=== PATIENT | male | born 1995 | race Caucasian/White ===

== ENCOUNTER 2020-01-19 11:19 | Emergency (ER) | payer OTHER, SELFPAY ==
--- NOTE | 2020-01-19 11:34 | ED.GENADULT ---
HPI - General Adult General Chief complaint: Upper Respiratory Infection Stated complaint: sore throat fever Time Seen by Provider: 01/19/20 11:56 Source: patient Mode of arrival: ambulatory Limitations: no limitations History of Present Illness HPI narrative: 24-year-old male patient presents to the [facility] with complaints of cold symptoms that started yesterday. Patient states he has had severe body aches and chills as well as fevers. Patient states a little bit of a cough and a runny nose. Denies any sore throat, ear pain. Denies any nausea vomiting or diarrhea. Patient denies being a smoker. Patient denies getting a flu shot this year. Patient states he has taken Tylenol for symptoms so far. Related Data Allergies Allergy/AdvReac Type Severity Reaction Status Date / Time sulfamethoxazole Allergy Swelling Verified 01/19/20 11:50 [From Bactrim] trimethoprim [From Bactrim] Allergy Swelling Verified 01/19/20 11:50 Review of Systems Review of Systems: Narrative: CONSTITUTIONAL: Positive fever, chills, body exam sweats. EYES: Denies visual changes, redness, or discharge. ENT: Positive rhinorrhea, congestion, denies sore throat, or otalgia. CARDIOVASCULAR: Denies chest pain, palpitations, or edema. RESPIRATORY: Positive cough denies dyspnea. GASTROINTESTINAL: Denies abdominal pain, nausea, vomiting, or diarrhea. GENITOURINARY: Denies dysuria or hematuria. SKIN: Denies rash or itching. MUSCULOSKELETAL: Denies back pain, joint pain, or myalgia. NEUROLOGIC: Denies headache, numbness, or weakness. PSYCHIATRIC: Denies anxiety or depression. PMFSH Comments At the time of my signature I agree with nursing past medical history, surgical, social, and family history. There is no relevant family history pertinent to the presenting complaint. Exam Narrative: Exam Narrative: GENERAL: ill-appearing, well-nourished, and in no acute distress. HEAD: Normocephalic, atraumatic. EYES: PERRLA and EOMI. ENT: Nares with erythema and edema noted bilaterally, no rhinorrhea or epistaxis. Mucous membranes moist. Posterior pharynx with no erythema, tonsillar margin, exudates or lesions present. Bilateral TMs are clear with no erythema or foreign bodies in the canal. NECK: Supple. No lymphadenopathy CHEST: Clear to auscultation. No respiratory distress. HEART: Regular rate and rhythm. No murmur heard. Normal peripheral pulses. ABDOMEN: Soft, nontender, nondistended, normal active bowel sounds. EXTREMITIES: Normal range of motion. No edema. SKIN: Warm, dry, no rash. NEURO: No focal deficits. Alert and oriented x3. Course Reevaluation(s) Reevaluation #1: Notify patient he is positive today for influenza A. Discussed with him that he is within the timeframe to receive antivirals and discussed with him the pros and cons of taking antivirals as well as the side effects. Patient states he would like to go ahead and start antivirals today. Discussed with patient we will write him off of work for the rest of the week and he can go back on Friday as long as he has been fever free for 24 hours on Friday. Patient verbalized understanding denies any other questions or concerns at this time. Date: 01/19/20 Time: 12:11 Vital Signs Vital signs: Vital Signs Temperature 38.1 C H 01/19/20 11:39 Pulse Rate 91 01/19/20 11:39 Respiratory Rate 16 01/19/20 11:39 Blood Pressure 123/73 01/19/20 11:39 Pulse Oximetry 100 01/19/20 11:39 Temperature 38.1 C H 01/19/20 11:39 Pulse Rate 91 01/19/20 11:39 Respiratory Rate 16 01/19/20 11:39 Blood Pressure 123/73 01/19/20 11:39 Pulse Oximetry 100 01/19/20 11:39 Vital signs reviewed. Medical Decision Making Differential Diagnosis Differential Diagnosis: Differential diagnosis: Allergic rhinitis, chronic sinusitis, tonsillitis, acute sinusitis, infectious mononucleosis, seasonal influenza, pertussis, diphtheria, meningococcal disease, viral syndrome, viral bronchitis, RSV. Any car
[2020-01-19 11:39] VITALS: BP 123/73; PULSE 91; RESP 16; TEMP 38.1; O2SAT 100
== END 2020-01-19 12:18 | disposition home or self-care (01) ==
PROVIDERS: Emergency Provider Nurse Practitioner Family; PCP Internal Medicine Infectious Disease
DX: J10.1 Influenza due to other identified influenza virus with other respiratory manifestations (principal)
CPT/HCPCS: 87804; 99213; G0463

== ENCOUNTER 2020-04-15 20:34 | Emergency (ER) | payer OTHER, SELFPAY ==
--- NOTE | ~2020-04-15 | CT_ITS ---
EXAMINATION: CT chest w con DATE: 04/15/2020 21:56 INDICATION: Back and right neck pain post fall from roof landing on the back. TECHNIQUE: Computed tomography (CT) of the chest was performed without intravenous contrast. Addition al 3D reconstructions utilizing coronal maximum intensity projection (MIP) were performed. Automated exposure control and iterative reconstruction technique were employed. The dose-length product was 14 6.68 mGy-cm. COMPARISON: None FINDINGS: Mild dependent atelectasis in the bilateral lower lobes. No pneumonia or other pulmonary infiltrates, pulmonary edema, pleural effusion or pneumothorax. Heart size is normal. No pericardial effusion. Th oracic aorta is normal in caliber with no dissection or acute traumatic aortic injury. No pathologica lly enlarged thoracic lymphadenopathy. The bilateral adrenal glands and visualized portion of the serenity er, spleen, pancreas, gallbladder and bilateral kidneys are normal. Old healed fracture at the supervisor sample preparation ior left second rib at the costovertebral junction. No acute fractures. IMPRESSION: 1. No acute fracture or acute cardiopulmonary disease. Reviewed, dictated and finalized at location A.
--- NOTE | ~2020-04-15 | CT_ITS ---
EXAMINATION: CT brain wo con DATE: 04/15/2020 21:39 INDICATION: Fall from roof with neck pain. TECHNIQUE: Computed tomography (CT) of the head was performed without intravenous contrast. Sagittal and coronal reconstructions were performed. The mA was adjusted according to patient size. Iterative reconstruction technique was employed. The dose-length product was 605.33 mGy-cm. COMPARISON: None FINDINGS: No fracture. No acute intracranial hemorrhage, acute infarction or abnormal extra axial fluid collect ion. Ventricles are normal and symmetric. No mass/mass effect. Mucosal thickening in the left maxilla ry and bilateral ethmoid sinuses. The orbits and mastoid air cells are normal. IMPRESSION: 1. No fracture or acute intracranial process. Reviewed, dictated and finalized at location A.
--- NOTE | ~2020-04-15 | CT_ITS ---
EXAMINATION: CT cervical spine wo con DATE: 04/15/2020 21:39 INDICATION: Neck pain post fall from roof. TECHNIQUE: Computed tomography (CT) of the cervical spine was performed without intravenous contrast. Automated exposure control and iterative reconstruction technique were employed. The dose-length pro duct was 118.50 mGy-cm. COMPARISON: None FINDINGS: Mild cervical thoracic dextrocurvature which may be positional. Sagittal alignment is normal. Vertebr al body heights are normal. No fracture. Mild disc height loss at C3-C4 and C5-C6. Disc bulges at C3- C4 and C4-C5 and disc osteophyte complex at C5-C6 and C6-C7 resulting in minimal to mild multilevel c entral canal stenosis. Mild to moderate uncovertebral osteoarthritis on the right at C3-C4 contributi ng to mild right-sided neural foraminal stenosis at this level. Mild uncovertebral osteoarthritis at a few additional levels on the left and right. There is also minimal to mild scattered cervical facet osteoarthritis. Cervical soft tissues are unremarkable. IMPRESSION: 1. Minimal to mild cervical spondylosis. No acute osseous abnormality. Reviewed, dictated and finalized at location A.
[2020-04-15 20:36] VITALS: BP 164/92; PULSE 93; RESP 20; TEMP 37.2; O2SAT 97
[2020-04-15 20:52] VITALS: BP 146/77; PULSE 88; RESP 26; O2SAT 98
[2020-04-15] MEDS: MORPHINE SULFATE 2 MG/ML INJ IV PUSH (21:10)
[2020-04-15] MEDS: KETOROLAC 30 MG/ML VIAL (*BKC) IV PUSH (21:11)
[2020-04-15 21:20] VITALS: BP 147/91; PULSE 89; RESP 21; O2SAT 98
[2020-04-15 21:28] LABS: Blood Urea Nitrogen 16 mg/dL (9-20); Calcium 9.4 mg/dL (8.4-10.2); Carbon Dioxide 26 mmol/L (22-30); Chloride 102 mmol/L (98-107); Estimated CRCL calculation 104 ml/min; Estimated Glomerular Filt Rate > 60; Glucose 111 mg/dL (75-110); Potassium 4.2 mmol/L (3.4-5.0); Sodium 138 mmol/L (137-145)
--- NOTE | 2020-04-15 21:33 | PC.NURSE ---
Pt to xray
--- NOTE | 2020-04-15 21:56 | PC.NURSE ---
EDp at bedside
--- NOTE | 2020-04-15 21:58 | ED.FALL ---
HPI - Fall General Chief Complaint: Fall Stated Complaint: fell from a roof this AM, 12 feet Time Seen by Provider: 04/15/20 20:54 History of Present Illness HPI Narrative: Patient is a 25-year-old male who presents the ER status post fall from his roof. Patient was approximately 10 feet in the air when he fell. He was walking on his roof when he stepped on a stick that made him get his foot stuck in a gutter. He then fell 5 feet out from the foot and hit a tree branch and then fell 10 feet to the ground. He landed on his back. He did not lose consciousness. He is able to get up and walk around after he caught his breath. He then went to sleep the rest the day. Upon waking up he has had significant pain with movement most notably in his right back and chest. No difficulty breathing. No changes in vision or hearing or cognition. He has mild neck pain that he thinks could be from whiplash. He does not take any blood thinners. Has not tried any pain medications. Related Data Allergies Allergy/AdvReac Type Severity Reaction Status Date / Time sulfamethoxazole Allergy Swelling Verified 04/15/20 20:58 [From Bactrim] trimethoprim [From Bactrim] Allergy Swelling Verified 04/15/20 20:58 Review of Systems Review of Systems: All systems reviewed & are unremarkable except as noted in HPI and below Constitutional: Constitutional: Denies chills, Denies fever(s) and Denies weakness Eyes: Eyes: Denies change in vision and Denies photophobia ENT: Denies nasal congestion and Denies sore throat Cardiovascular: Cardiovascular: Denies chest pain and Denies radiating jaw, neck or arm pain Gastrointestinal: Gastrointestinal: Denies abdominal pain, Denies nausea and Denies vomiting Genitourinary: Genitourinary: Denies hematuria Musculoskeletal: Musculoskeletal: Denies back pain, Reports myalgias and Reports muscle cramps Neurologic: Denies dizziness, Denies focal weakness and Denies numbness PMFSH Past Medical History Medical History (Updated 04/15/20 @ 23:32 by Luis Miguel Ordonez MD) Factor V Leiden Surgical History Surgical History (Updated 04/15/20 @ 22:01 by Luis Miguel Ordonez MD) No significant past surgical history Social History Social History (Updated 04/15/20 @ 22:01 by Luis Miguel Ordonez MD) Smoking status: Never smoker Exam Narrative: Exam Narrative: GENERAL: Well-appearing, well-nourished, and in no acute distress. HEAD: Normocephalic, atraumatic. EYES: PERRL and EOMI. ENT: Mucous membranes moist. NECK: Supple. C-spine immobilized without midline tenderness. CHEST: Clear to auscultation. No respiratory distress. HEART: Regular rate and rhythm. Normal peripheral pulses. ABDOMEN: Soft, nontender, nondistended. Back: No midline tenderness of thoracic or lumbar spine. No paraspinal muscular tenderness in the lumbar region or in the left thoracic region. There is mild paraspinal discomfort on the right side near the scapula without swelling or abrasion. EXTREMITIES: Normal range of motion. No edema. SKIN: Warm, dry, no rash. NEURO: No focal deficits. Alert and oriented x3. PSYCH: Normal mood and affect. Course Course Emergency Course: Moderately improved with Toradol. Discharge home with supportive therapy. Vital Signs Vital signs: Vital Signs Temperature 99 F 04/15/20 20:36 Pulse Rate 93 04/15/20 20:36 Respiratory Rate 20 04/15/20 20:36 Blood Pressure 164/92 H 04/15/20 20:36 Pulse Oximetry 97 04/15/20 20:36 Temperature 99 F 04/15/20 20:36 Pulse Rate 91 04/15/20 22:39 Respiratory Rate 20 04/15/20 22:39 Blood Pressure 118/66 04/15/20 22:39 Pulse Oximetry 99 04/15/20 22:39 MDM - Fall Lab Data Result diagrams: 04/15/20 21:08 Labs: Lab Results 04/15/20 Range/Units 21:08 Sodium 138 (137-145) mmol/L Potassium 4.2 (3.4-5.0) mmol/L Chloride 102 (98-107) mmol/L Carbon Dioxide 26 (22-30) mmol/L BUN 16 (9-20) mg/d
[2020-04-15 22:09] VITALS: BP 133/77; PULSE 93; RESP 20; O2SAT 99
[2020-04-15 22:39] VITALS: BP 118/66; PULSE 91; RESP 20; O2SAT 99
[2020-04-15 23:47] VITALS: BP 94/83; PULSE 79; RESP 21; O2SAT 99
--- NOTE | 2020-04-15 23:47 | PC.NURSE ---
C-coller was removed by EDP
[2020-04-16 00:16] VITALS: BP 123/73; PULSE 85; RESP 15; O2SAT 100
== END 2020-04-16 00:18 | disposition home or self-care (01) ==
PROVIDERS: Emergency Provider Emergency Medicine; PCP Internal Medicine Infectious Disease
DX: S19.9XXA Unspecified injury of neck, initial encounter (principal); W13.2XXA Fall from, out of or through roof, initial encounter
CPT/HCPCS: 36415; 70450; 71260; 72125; 80048; 96374; 96375; 99284; J1885; J2270; L0140; Q9967

== ENCOUNTER 2022-01-13 09:18 | Emergency (ER) | payer OTHER, SELFPAY ==
--- NOTE | ~2022-01-13 | XR_ITS ---
EXAMINATION: XR chest 2V DATE: 01/13/2022 09:44 INDICATION: Shortness of breath. Recent surgery. TECHNIQUE: Frontal and lateral views of the chest were obtained. COMPARISON: Chest CT 04/15/2020 FINDINGS: There is mild atelectasis in the lower lung zones. No pleural effusion or pneumothorax. The heart size is normal. IMPRESSION: 1. Mild atelectasis in the lower lung zones. Reviewed, dictated and finalized at location A. PRESS TENDER
--- NOTE | ~2022-01-13 | NM_ITS ---
EXAMINATION: NM pulmonary perfusion DATE: 01/13/2022 13:59 INDICATION: Shortness of breath. TECHNIQUE: 5.4 mCi Tc-99m MAA was administered intravenously for perfusion images. Scintigraphic anya ges of the chest were obtained. COMPARISON: Chest CT 01/13/2022, chest 2 views 01/13/2022 FINDINGS: Perfusion images show a matched small defect in posterobasal segment left lower lobe. IMPRESSION: 1. Pulmonary embolism absent (low probability). Reviewed, dictated and finalized at location A. SION MANAGER
--- NOTE | ~2022-01-13 | CT_ITS ---
EXAMINATION: CTA chest PE protocol DATE: 01/13/2022 11:50 INDICATION: Shortness of breath. Left rib pain. TECHNIQUE: Computed tomography angiography (CTA) of the chest was performed with 100 mL Omnipaque-350 intravenous contrast timed to evaluate the pulmonary arteries. Coronal maximum intensity projection 3D-reconstructions were created by the technologist. Automated exposure control and iterative reconst ruction technique were employed. The dose-length product was 271.44 mGy-cm. COMPARISON: Chest CT 04/15/2020 FINDINGS: There is mild atelectasis in right lower lobe and right middle lobe. There are airspace and groundglass opacities in basilar left lower lobe. There is a small left pleural effusion. The heart size is normal. No pericardial effusion. There is no pulmonary embolus. There is mild thoracic spondy losis. IMPRESSION: 1. No pulmonary embolus. Sensitivity is mildly decreased by motion artifact. 2. Small left pleural effusion. 3. Airspace and groundglass opacities in basilar left lower lobe, consistent with atelectasis versus pneumonia. Reviewed, dictated and finalized at location A. SEALING MACHINE FEEDER IMPRESSION: 1. No pulmonary embolus. Sensitivity is mildly decreased by motion artifact. 2. Small left pleural effusion. 3. Airspace and groundglass opacities in basilar left lower lobe, consistent wi th atelectasis versus pneumonia.
[2022-01-13 09:31] VITALS: BP 128/80; PULSE 95; RESP 24; O2SAT 97
--- NOTE | 2022-01-13 09:34 | ECG_ITS ---
Measurements Intervals [place] Rate: 92 P: 28 NC: 185 QRS: 44 QRSD: 90 T: 9 QT: 326 QTc: 403 Interpretive Statements SINUS RHYTHM MINIMAL Q WAVES- INFERIOR LEADS BORDERLINE ECG Electronically Signed On 01-13-2022 15:21:01 MANAGING CONSULTANT CLINICAL PROFESSOR by Renny Feliciano D.O.
[2022-01-13 09:48] LABS: Basophils Absolute Auto 0.1 K/mm3 (0.0-0.1); Basophils Percent Auto 0.5 % (0.2-1.2); Eosinophils Absolute Auto 0.2 K/mm3 (0-0.3); Eosinophils Percent Auto 1.3 % (0-4.4); Hematocrit 39.7 % (42.0-52.0); Hemoglobin 14.1 g/dL (14.0-18.0); Immature Granulocyte Absolute 0.04 K/mm3 (0.00-0.031); Immature Granulocyte Percent A 0.3 % (0-0.5); Lymphocytes Absolute Auto 1.76 K/mm3 (0.9-3.2); Lymphocytes Percent Auto 13.5 % (18.3-44.2); Mean Corpuscular HGB Conc 35.5 g/dl (32-36); Mean Corpuscular Hemoglobin 31.1 pg (26-34); Mean Corpuscular Volume 87.4 fl (80-100); Monocytes Percent Auto 7.6 % (2.6-8.5); Neutrophils Percent Auto 76.8 % (45.5-73.1); Platelet Count Result 322 k/mm3 (150-375); Red Blood Count 4.54 M/mm3 (4.6-6.20); Red Cell Distribution Width 11.5 % (11.5-14.5); White Blood Count 13.1 K/mm3 (4.5-10.0)
[2022-01-13 09:56] LABS: Alanine Aminotransferase 56 U/L (4-50); Albumin Level 4.7 g/dL (3.5-5.1); Alkaline Phosphatase 115 U/L (38-126); Anion Gap 13 mmol/L (8-16); Aspartate Amino Transferase 41 U/L (17-59); Bilirubin,Total 1.2 mg/dL (0.2-1.3); Blood Urea Nitrogen 14 mg/dL (9-20); Calcium 10.1 mg/dL (8.4-10.2); Carbon Dioxide 26 mmol/L (22-30); Chloride 97 mmol/L (98-107); Estimated CRCL calculation 92 ml/min; Estimated Glomerular Filt Rate > 60; Glucose 121 mg/dL (65-110); Potassium 4.1 mmol/L (3.4-5.0); Sodium 136 mmol/L (137-145)
[2022-01-13 10:00] LABS: D Dimer 2.49 ug/mL (<0.48)
--- NOTE | 2022-01-13 10:27 | ED.GENADULT ---
HPI - General Adult General Chief complaint: Shortness of Breath/Dyspnea Stated complaint: rib pain/sob/sp fracture Time Seen by Provider: 01/13/22 10:05 Source: patient Mode of arrival: ambulatory Limitations: no limitations History of Present Illness HPI narrative: Patient presents for evaluation of left-sided chest pain since Friday night. He indicates he was watching television around 1800 when the pain started. Pain has been constant since that time. He does get some relief when in certain positions. He states pain is sharp, 7/10 in severity. He has associated shortness of breath. He denies any significant cough. Reports hot flashes and chills. Denies any nausea, vomiting, diarrhea. No history of similar symptoms. He states he slipped on ice 6 days ago while working and fractured his tibia and fibula on the right. He was in [facility] and was treated at [facility]. He underwent surgical repair that same day. He has been taking tramadol and hydrocodone for his pain since his surgery, both of which seem to help. He does not smoke cigarettes/marijuana. He has Factor V Leiden deficiency. He has never had a DVT or PE. He has received his COVID vaccinations. No personal hx of COVID. No recent sick exposures to his knowledge. Related Data Allergies Allergy/AdvReac Type Severity Reaction Status Date / Time sulfamethoxazole Allergy Swelling Verified 04/15/20 20:58 [From Bactrim] trimethoprim [From Bactrim] Allergy Swelling Verified 04/15/20 20:58 Review of Systems Review of Systems: CONSTITUTIONAL: Denies fever, chills, or sweats. EYES: Denies visual changes, redness, or discharge. ENT: Denies rhinorrhea, congestion, sore throat, or otalgia. CARDIOVASCULAR: Reports left-sided chest pain. Denies palpitations or edema. RESPIRATORY: Reports shortness of breath. Denies cough. GASTROINTESTINAL: Denies abdominal pain, nausea, vomiting, or diarrhea. GENITOURINARY: Denies dysuria or hematuria. SKIN: Denies rash or itching. MUSCULOSKELETAL: Reports right ankle pain. Denies back pain NEUROLOGIC: Denies headache, numbness, dizziness, or weakness. PSYCHIATRIC: Denies anxiety or depression. [facility] Past Medical History Medical History (Updated 01/13/22 @ 14:56 by Chico Thornton, METAL PRECISION MACHINE ASSEMBLER, ) Factor V Leiden Surgical History Surgical History History of ankle surgery Family History Family History Mother Tongue cancer Father Factor V deficiency Colon cancer Social History Social History Smoking status: Never smoker Alcohol intake: current Alcohol use details: social Substance use: never Living arrangements: with family Additional occupation/education comments: Works for [employer] Gender identity (if verbalized by the patient): Male Sexual Orientation (if Verbalized by the Patient): Straight or Heterosexual Spiritual care concerns: No Exam Narrative: GENERAL: Visibly uncomfortable. Well-nourished, and in no acute distress. HEAD: Normocephalic, atraumatic. EYES: PERRLA and EOMI. ENT: Nares clear, no rhinorrhea or epistaxis. Mucous membranes moist. Oropharynx without tonsillar hypertrophy exudate or other lesions. Bilateral TMs pearly morales nonbulging NECK: Supple. No adenopathy or masses. No carotid bruits or JVD CHEST: Clear to auscultation. No respiratory distress. No wheezes rales or rhonchi HEART: Regular rate and rhythm. No murmur heard. Normal peripheral pulses. ABDOMEN: Soft, nontender, nondistended, normal active bowel sounds. EXTREMITIES: Normal range of motion. No edema. SKIN: Warm, dry, no rash. NEURO: No focal deficits. Alert and oriented x3. PSYCH: Normal mood and affect. Course Course Emergency Course: This is a 26-year-old male who presented for evaluation of left-s
[2022-01-13] MEDS: MORPHINE SULFATE (*CRX) 2 MG/ML INJ IV PUSH (10:46)
[2022-01-13 10:53] LABS: Troponin I < 0.012 ng/mL (0.000-0.034)
[2022-01-13 11:10] VITALS: BP 129/76; PULSE 98; RESP 18; O2SAT 97; O2SAT 99
[2022-01-13 11:58] VITALS: RESP 18
[2022-01-13 12:18] LABS: INR 1.1; Prothrombin Time 13.9 Seconds (11.1-14.7)
[2022-01-13 12:19] LABS: Partial Thromboplastin Time 34.5 SECONDS (22.3-36.8)
--- NOTE | 2022-01-13 12:45 | PC.NURSE ---
Pt agreeable to VQ scan, aware that the team must be called in first.
[2022-01-13] MEDS: MORPHINE SULFATE (*CRX) 4 MG/ML INJ IV PUSH (13:34)
[2022-01-13 13:38] LABS: Troponin I < 0.012 ng/mL (0.000-0.034)
[2022-01-13 14:48] VITALS: BP 136/87; PULSE 98; RESP 18; O2SAT 99
[2022-01-13 16:15] VITALS: BP 132/88; PULSE 77; RESP 18; O2SAT 98
[2022-01-14 17:26] LABS: SARS-CoV-2 RNA PCR Negative
== END 2022-01-13 16:15 | disposition home or self-care (01) ==
PROVIDERS: Emergency Medicine; Emergency Provider Nurse Practitioner; PCP Internal Medicine Infectious Disease
DX: J18.9 Pneumonia, unspecified organism (principal); R07.9 Chest pain, unspecified; Z20.822 Contact with and (suspected) exposure to COVID-19; D68.51 Activated protein C resistance
CPT/HCPCS: 36415; 71046; 71275; 78580; 80053; 84484; 85025; 85380; 85610; 85730; 87804; 93005; 96374; 96376; 99284; A9540; C9803; J2270; Q9967; U0003; U0005

== ENCOUNTER 2023-02-18 13:58 | Emergency (ER) | payer OTHER, SELFPAY ==
--- NOTE | ~2023-02-18 | CT_ITS ---
EXAMINATION: CTA brain carotid DATE: 02/18/2023 18:49 INDICATION: Headache TECHNIQUE: Computed tomographic angiography (CTA) of the head was performed without and with 100 mL O mnipaque-350 intravenous contrast. CTA of the neck was performed with intravenous contrast. Automated exposure control and iterative reconstruction technique were employed. The dose-length product was 1 829.42 mGy-cm. Maximum intensity projection and volume rendered 3D-reconstructions were created by terrell agee technologist on a separate workstation. COMPARISON: 04/15/2020. FINDINGS: CT BRAIN: No acute large vessel infarct, intracranial hemorrhage, mass, or hydrocephalus. CTA HEAD: No large vessel occlusion, aneurysm, high flow vascular malformation, nidus or extravasation. Symmetr ic parenchymal enhancement. Patent cerebral veins. CTA NECK: Aortic arch and proximal great vessels: No atherosclerotic calcifications at the visualized aortic ar ch and proximal great vessels. Normal arch anatomy. Right common carotid, carotid bifurcation, and internal carotid artery: Normal.There is 0% stenosis o f the proximal right internal carotid artery relative to normal distal artery lumen diameter (NASCET criteria). Left common carotid, carotid bifurcation, and internal carotid artery: Normal.There is 0% stenosis of the proximal left internal carotid artery relative to normal distal artery lumen diameter (NASCET cr iteria). Vertebral arteries: Normal. No significant plaque or stenosis. Other findings: Left maxillary and ethmoid mucosal thickening. Retention cysts or polyps in the bilat eral maxillary and left ethmoid sinuses. IMPRESSION: Mucoperiosteal paranasal sinus disease, otherwise normal noncontrast brain CT findings. Normal CTA he ad and neck findings. Reviewed, dictated and finalized at location K. IMPRESSION: Mucoperiosteal paranasal sinus disease, otherwise normal noncontrast brain CT f indings. Normal CTA head and neck findings.
[2023-02-18 14:04] VITALS: BP 123/78; PULSE 82; RESP 18; TEMP 36.4; O2SAT 99
[2023-02-18 17:42] VITALS: BP 145/82; PULSE 77; RESP 16; O2SAT 100
[2023-02-18 18:32] LABS: Estimated CRCL calculation 105 ml/min; Estimated Glomerular Filt Rate > 60
[2023-02-18] MEDS: KETOROLAC 30 MG/ML VIAL (*BKC) IV PUSH (18:42)
[2023-02-18] MEDS: diphenhydrAMINE HCl INJ 50 MG/ML VIAL 25 MG IV PUSH (18:43)
[2023-02-18] MEDS: METOCLOPRAMIDE HCL INJ 10 MG/2 ML VIAL IV PUSH (18:45)
--- NOTE | 2023-02-18 19:15 | ED.HA ---
HPI - Headache General Chief Complaint: Headache Stated Complaint: Headache Time Seen by Provider: 02/18/23 17:54 History of Present Illness HPI Narrative: Patient is a 28-year-old male who presents ER with headaches. Ongoing over the last week and a half. Left-sided. Begins in the back of neck and moves to the front left behind his eye. No change in vision or hearing. No slurred speech. No numbness or weakness in arm or leg. Reports it occurs when he starts getting a good pump when working out but also occurs after an orgasm. No previous history of migraines. No family history of aneurysm or bleed. Related Data Allergies Allergy/AdvReac Type Severity Reaction Status Date / Time sulfamethoxazole Allergy Swelling Verified 02/18/23 17:38 [From Bactrim] of the Eye trimethoprim [From Bactrim] Allergy Swelling Verified 02/18/23 17:38 of the Eye Review of Systems Review of Systems: All systems reviewed & are unremarkable except as noted in HPI and below Constitutional: Constitutional: Denies chills, Denies fatigue and Denies fever(s) Eyes: Eyes: Denies change in vision and Denies photophobia Gastrointestinal: Gastrointestinal: Denies nausea and Denies vomiting Neurologic: Denies dizziness, Denies syncope, Reports headache(s), Denies focal weakness and Denies numbness PMFSH Past Medical History Medical History (Updated 02/18/23 @ 19:20 by Luis Miguel Ordonez MD) Healthy adult male Surgical History Surgical History (Updated 02/18/23 @ 19:20 by Luis Miguel Ordonez MD) No history of previous surgery Exam Narrative: GENERAL: Well-appearing, well-nourished, and in no acute distress. HEAD: Normocephalic, atraumatic. EYES: PERRL and EOMI. CHEST: Clear to auscultation. No respiratory distress. HEART: Regular rate and rhythm. Normal peripheral pulses. EXTREMITIES: Normal range of motion. No edema. SKIN: Warm, dry, no rash. NEURO: Clear speech. Alert and oriented x3. PSYCH: Normal mood and affect. Course Course Emergency Course: Headache once from 05/10 to 12/10 after Toradol/Reglan/Benadryl. Patient informed of imaging results. Recommend follow-up with PCP and neurology. Recommend avoiding activities that increase the pressure in his head including sex/orgasm being/the gym. Vital Signs Vital signs: Vital Signs Temperature 97.6 F 02/18/23 14:04 Pulse Rate 82 02/18/23 14:04 Respiratory Rate 18 02/18/23 14:04 Blood Pressure 123/78 02/18/23 14:04 Pulse Oximetry 99 02/18/23 14:04 Oxygen Delivery Room Air 02/18/23 14:04 Temperature 97.6 F 02/18/23 14:04 Pulse Rate 77 02/18/23 17:42 Respiratory Rate 16 02/18/23 17:42 Blood Pressure 145/82 H 02/18/23 17:42 Pulse Oximetry 100 02/18/23 17:42 Oxygen Delivery Room Air 02/18/23 14:04 MDM - Headache Lab Data 02/18/23 18:31 Labs: Lab Results 02/18/23 Range/Units 18:31 Creatinine 0.90 (0.8-1.5) mg/dL Estim Creat Clear Calc 105 ml/min Estimated GFR > 60 (59 - ) Imaging Data Radiologist's impression: ITS Impressions Head/Neck CTA 02/18/23 18:51 IMPRESSION: Mucoperiosteal paranasal sinus disease, otherwise normal noncontrast brain CT findings. Normal CTA head and neck findings. Discharge Plan Discharge Clinical Impression: Migraine Patient Disposition: Home, Self-Care Condition: Stable Instructions: Migraine Headache (ED) Additional Instructions: Return the ER if you have worsening headaches, you have focal weakness in arm or leg, you have slurred speech, you have additional concerns. Follow-up with your primary care doctor as well as neurology for further evaluation. Follow-up/Referrals: Billy Reddy MD [Physician] - 1 Week Rashel,MD Josesito [Primary Care Provider] -
--- NOTE | 2023-02-18 19:21 | PC.NURSE ---
Report given to VITOR Shelton
[2023-02-18 19:40] VITALS: BP 118/71; PULSE 75; RESP 14; TEMP 36.9; O2SAT 99
== END 2023-02-18 19:47 | disposition home or self-care (01) ==
PROVIDERS: Emergency Provider Emergency Medicine; PCP Internal Medicine Infectious Disease
DX: G43.909 Migraine, unspecified, not intractable, without status migrainosus (principal)
CPT/HCPCS: 70496; 70498; 96374; 96375; 99284; J1200; J1885; J2765; Q9967